=== PATIENT | female | born 1995 | race Caucasian/White ===

== ENCOUNTER 2023-09-25 13:30 | Emergency (ER) | payer SELFPAY ==
[2023-09-25] VITALS (10 sets, daily range): BP systolic 117–132; BP diastolic 65–88; PULSE 60–76; RESP 12–18; TEMP 37; O2SAT 96–100
--- NOTE | ~2023-09-25 | CT_ITS ---
EXAMINATION: CT abdomen pelvis w con DATE: 09/25/2023 15:08 INDICATION: Hematemesis. Melena. TECHNIQUE: Computed tomography (CT) of the abdomen and pelvis was performed with 100 mL Omnipaque 350 intravenous contrast. Automated exposure control and iterative reconstruction technique were employe d. The dose-length product was 247.72 mGy-cm. COMPARISON: None. FINDINGS: The visualized portions of the lung bases are clear without pneumonia or pleural effusion. The heart size is normal. No pericardial effusion. The liver, spleen, gallbladder, pancreas, and adre nal glands are normal. There is an 11 mm cyst in right kidney. Left kidney is normal. There are no di lated loops of bowel. The appendix is normal. The bones are unremarkable. IMPRESSION: 1. No etiology for the patient's symptoms. Reviewed, dictated and finalized at location A. ING MACHINE OPERATOR
[2023-09-25 14:06] LABS: Basophils Absolute Auto 0.1 K/mm3 (0.0-0.1); Basophils Percent Auto 0.9 % (0.2-1.2); Eosinophils Absolute Auto 0.2 K/mm3 (0-0.3); Eosinophils Percent Auto 3.1 % (0-4.4); Hematocrit 39.2 % (37.0-47.0); Hemoglobin 12.6 g/dL (12.0-15.0); Immature Granulocyte Absolute 0.01 K/mm3 (0.00-0.031); Immature Granulocyte Percent A 0.1 % (0-0.5); Lymphocytes Absolute Auto 2.13 K/mm3 (0.9-3.2); Lymphocytes Percent Auto 27.3 % (18.3-44.2); Mean Corpuscular HGB Conc 32.1 g/dl (32-36); Mean Corpuscular Hemoglobin 30.2 pg (26-34); Mean Platelet Volume 9.9 fl (7.4-10.4); Monocytes Absolute Auto 0.7 K/mm3 (0.1-0.6); Neutrophils Absolute Auto 4.6 K/mm3 (1.3-6.7); Neutrophils Percent Auto 59.6 % (45.5-73.1); Platelet Count Result 298 k/mm3 (150-375); Red Blood Count 4.17 M/mm3 (4.2-5.4); Red Cell Distribution Width 13.2 % (11.5-14.5); White Blood Count 7.8 K/mm3 (4.5-10.0)
[2023-09-25 14:18] LABS: Prothrombin Time 13.2 Seconds (11.1-14.7)
[2023-09-25 14:19] LABS: Alanine Aminotransferase 153 U/L (6-35); Albumin Level 4.9 g/dL (3.5-5.1); Alkaline Phosphatase 49 U/L (38-126); Anion Gap 8 mmol/L (8-16); Aspartate Amino Transferase 89 U/L (14-36); Bilirubin,Total 0.5 mg/dL (0.2-1.3); Blood Urea Nitrogen 8 mg/dL (7-17); Calcium 10.1 mg/dL (8.4-10.2); Carbon Dioxide 27 mmol/L (22-30); Chloride 104 mmol/L (98-107); Estimated CRCL calculation 101 ml/min; Estimated Glomerular Filt Rate > 60; Glucose 110 mg/dL (65-110); Partial Thromboplastin Time 23.7 SECONDS (22.3-36.8); Potassium 3.9 mmol/L (3.4-5.0); Sodium 139 mmol/L (137-145)
--- NOTE | 2023-09-25 14:27 | ECG_ITS ---
Measurements Intervals Sharon Rate: 56 P: 10 WA: 118 QRS: 60 QRSD: 83 T: 45 QT: 451 QTc: 438 Interpretive Statements SINUS BRADYCARDIA WITH SHORT WA INTERVAL NO PREVIOUS ECG AVAILABLE FOR COMPARISON Electronically Signed On 09-25-2023 15:54:40 ANIMAL CARE ATTENDANT by Khahn Bran M.D.
--- NOTE | 2023-09-25 14:28 | ED.GIBLEED ---
HPI - GI Bleed General Chief complaint: GI Bleed <Melvina Malik PA-C - Last Filed: 09/25/23 19:59> Stated complaint: vomiting blood/blood in stool <RAVINDRA Burnette Last Filed: 09/25/23 19:59> Time Seen by Provider: 09/25/23 14:06 <Melvina Malik PA-C - Last Filed: 09/25/23 19:59> History of Present Illness HPI Narrative: 28-year-old female presents to the emergency department with complaints of melena and hematemesis x2 weeks. Patient states she has had episodes of dark tarry stool daily, sometimes with diarrhea for 2 weeks. States she has nausea every morning for the past 2 weeks she has had emesis with streaking red blood she is estimating to be about palm size. she is also reporting coffee-ground emesis. States she has been eating some steak and red wine is uncertain if these are causing her symptoms. States she drinks approximately 3 drinks of alcohol twice a week. She denies similar symptoms in the past. she is also reporting intermittent lightheadedness which she is attributing to her anxiety. States she has felt very anxious lately with relationship and job issues. She denies SI or HI, she is not currently medicated for anxiety or depression. She denies chest pain or shortness of breath, syncope, abdominal pain, dysuria or hematuria. <Melvina Malik PA-C - Last Filed: 09/25/23 19:59> Related Data Allergies/Adverse reactions: Allergies Allergy/AdvReac Type Severity Reaction Status Date / Time No Known Allergies Allergy Verified 09/25/23 13:32 <Melvina Malik PA-C - Last Filed: 09/25/23 19:59> Review of Systems Review of Systems: CONSTITUTIONAL: Denies fever, chills, or sweats. EYES: Denies visual changes, redness, or discharge. ENT: Denies rhinorrhea, congestion, sore throat, or otalgia. CARDIOVASCULAR: Denies chest pain, palpitations, or edema. RESPIRATORY: Denies cough or dyspnea. GASTROINTESTINAL: Denies abdominal pain, nausea, vomiting, or diarrhea. GENITOURINARY: Denies dysuria or hematuria. SKIN: Denies rash or itching. MUSCULOSKELETAL: Denies back pain, joint pain, or myalgia. NEUROLOGIC: Denies headache, numbness, or weakness. PSYCHIATRIC: Denies anxiety or depression. <Melvina Malik PA-C - Last Filed: 09/25/23 19:59> Exam Narrative: GENERAL: Well-appearing, well-nourished, and in no acute distress. Tearful and anxious HEAD: Normocephalic, atraumatic. EYES: PERRLA and EOMI. ENT: Nares clear, no rhinorrhea or epistaxis. Mucous membranes moist. NECK: Supple. CHEST: Clear to auscultation. No respiratory distress. HEART: Regular rate and rhythm. No murmur heard. Normal peripheral pulses. ABDOMEN: Soft, nontender, nondistended, normal active bowel sounds. No guarding, rebound or rigidity. No CVA tenderness. Rectal exam without external hemorrhoids or fissures. No melena or hematochezia visualized. Hemoccult negative however poor sensitivity given no stool in rectal vault. EXTREMITIES: Normal range of motion. No edema. SKIN: Warm, dry, no rash. NEURO: No focal deficits. Alert and oriented x3 PSYCH: tearful and anxious. Denies SI or HI. <Melvina Malik PA-C - Last Filed: 09/25/23 19:59> Course VOCATIONAL NURSING INSTRUCTOR/PA Physician Supervision RAMESH discussed patient with me. Despite chief concern, agree that patient otherwise appears stable for discharge with strict ed return precautions. No anemia, no tachycardia, hypotension, no guiaic testing positive (realize no stool in rectal vault). I did observe patient from the door of her ED room but did not perform a physical exam or discuss with patient. Patient to be given strict ED return precautions. <Virginie Perrin MD - Last Filed: 09/27/23 09:54> Vital Signs Vital signs: Vital Signs Temperature 98.6 F 09/25/23 13:36 Pulse Rate 67 09/25/23 13:36 Respiratory Rate 16 09/25/23 13:36 Blood Pressure 132/88 09/25/23 13:36 Pulse Oximetry 99 09/25/23 13:36 [place]
[2023-09-25] MEDS: SODIUM CHLORIDE 0.9% IV 1,000 ML 999 ML IV CONT (14:49)
[2023-09-25] MEDS: ONDANSETRON INJ 4 MG/2 ML VIAL IV PUSH (14:49)
[2023-09-25 14:59] LABS: Appearance Urine Clear (Clear); Bilirubin Urine Negative (Negative); Blood Urine Negative (Negative); Color Urine Yellow (Yellow); Glucose Urine UA Negative (Negative); Ketones Urine Negative (Negative); Leukocyte Esterase Ur Negative LEU/UL (Negative); Nitrate Urine Negative (Negative); Protein Urine Negative (Negative); Specific Grav Ur 1.011 (1.001-1.035); Urobilinogen Urine 0.2 mg/dL (<2.0)
[2023-09-25 15:19] LABS: Add Urine Microscopic? NO
[2023-09-25] MEDS: LORazepam INJ (*CRX) 2 MG/ML VIAL 1 MG IV PUSH (15:44)
== END 2023-09-25 16:00 | disposition home or self-care (01) ==
PROVIDERS: Preventive Medicine Aerospace Medicine; Emergency Provider Physician Assistant
DX: R11.2 Nausea with vomiting, unspecified (principal); F41.9 Anxiety disorder, unspecified; R00.1 Bradycardia, unspecified
CPT/HCPCS: 36415; 74177; 80053; 81003; 81025; 85025; 85610; 85730; 86850; 86900; 86901; 93005; 96361; 96374; 96375; 99284; J2060; J2405; J7030; Q9967